=== PATIENT | female | born 1975 | race African-American/Black ===

== ENCOUNTER 2023-09-15 00:55 | Emergency (ER) | payer MEDICAID, OTHER ==
[~2023-09-15] VITALS: Ht 167.6 cm; Wt 88.0 kg
[2023-09-15] MEDS: MORPHINE SULFATE 4 MG/ML SYR/VIAL IM ONE (01:30)
[2023-09-15 02:16] LABS: Basophils # (auto) 0 10 ^3/uL (0-0.2); Eosinophils # (auto) 0.1 10 ^3/uL (0-0.8); Eosinophils % (auto) 0.7 % (0.0-7.0); Lymphocytes # (auto) 1.1 10 ^3/uL (0.4-5.4); Lymphocytes % (auto) 8.7 % (10.0-50.0); Monocytes # (auto) 0.7 10 ^3/uL (0-1.3)
[2023-09-15 02:17] LABS: Basophils % (auto) 0.2 % (0.0-2.0); Hematocrit 38.3 % (36.0-46.0); Hemoglobin 11.8 g/dL (12.2-16.2); Mean Corpuscular Hgb Conc. 30.8 g/dL (32.0-36.0); Mean Corpuscular Volume 74.7 fL (80.0-100.0); Monocytes % (auto) 5.8 % (0.0-12.0); Neutrophils # (auto) 10.5 10 ^3/uL (1.6-8.6); Neutrophils % (auto) 84.6 % (37.0-80.0); Red Blood Cells 5.12 10^6/uL (4.0-5.20); Red Cell Distribution Width 14.7 % (11.8-14.3); White Blood Cell 12.5 10^3/uL (4.4-10.8)
[2023-09-15 02:27] LABS: Alanine Aminotransferase 10 U/L (7-40); Albumin 4.3 g/dL (3.2-4.8); Alkaline Phosphatase 51 U/L (46-116); Anion Gap 7 (5-15); Aspartate Aminotransferase 12 U/L (13-40); BUN/Creatinine Ratio 13.3 (10.0-20.0); Blood Urea Nitrogen 10 mg/dL (9-23); Calcium 9.3 mg/dL (8.7-10.4); Carbon Dioxide 27 mmol/L (20-30); Chloride 107 mmol/L (98-107); Glucose 119 mg/dL (74-106); Lipase 24 U/L (12-53); Potassium 4.1 mmol/L (3.5-5.1); Sodium 141 mmol/L (136-145)
[2023-09-15 02:28] LABS: Bilirubin, Total 0.7 mg/dL (0.2-1.0); Total Protein 6.9 g/dL (5.7-8.2)
[2023-09-15] MEDS: METOCLOPRAMIDE HCL 5MG/ml INJ 2ml VIAL IM ONE (02:30)
[2023-09-15 02:35] LABS: INR 1.01 (0.9-1.15); Partial Thromboplastin Time 25.3 SEC (24.5-34.5); Prothrombin Time 10.6 sec (9.3-11.8)
[2023-09-15] MEDS: KETOROLAC TROMETH 60MG/2ML VIAL IM ONE (02:56)
[2023-09-15 04:02] LABS: Urine Bacteria NONE SEEN /hpf (None Seen); Urine Blood 1+ /uL (Negative); Urine Clarity Clear (Clear); Urine Color Yellow (Yellow); Urine Mucus FEW (None Seen); Urine Protein, UAD TRACE (Negative); Urine Specific Gravity 1.027 (1.001-1.035); Urine WBC 3 /hpf (0 - 5)
[2023-09-15] MEDS: PIPERACILLIN-TAZOB 3.375GM 100 ML IV ONE (04:37)
[2023-09-15] MEDS: SODIUM CHLORIDE 0.9% 1,000 ML IV ONE (05:24)
[2023-09-15] MEDS: ONDANSETRON HCL 4 MG/2 ML VIAL IV ONE ×2 (05:24→15:11)
[2023-09-15] MEDS ORDERED: LEVO500T91 PO (13:59)
[2023-09-15] MEDS: HYDROcodone-ACET 5/325MG TAB PO ONE (15:10)
[2023-09-15 15:17] VITALS: BP 92/58; PULSE 110; RESP 20; TEMP 98; O2SAT 99
== END 2023-09-15 15:21 | disposition still patient (30) ==
LOC: ER 00:55
DX: R10.13 Epigastric pain (principal); R10.2 Pelvic and perineal pain; I10 Essential (primary) hypertension; Z98.890 Other specified postprocedural states
CPT/HCPCS: 36415; 74176; 76830; 76856; 80053; 81001; 83605; 83690; 84484; 84702; 85025; 85610; 85730; 87040; 96365; 96372; 96375; 96376; 99285; J1885; J2405; J2543; J2765